=== PATIENT | female | born 1955 | race Caucasian/White ===

== ENCOUNTER 2024-08-23 15:17 | Emergency (ER) | payer OTHER, SELFPAY ==
--- NOTE | 2024-08-23 15:39 | XR_ITS ---
Examination: PA lateral chest 2 views TECHNIQUE: Upright PA lateral chest 2 views Exam date and time: 08/23/2024 1550 hours INDICATIONS: Weakness nausea today. FINDINGS: Atelectasis versus early pneumonia left base Right lung clear Normal heart size IMPRESSION: Atelectasis versus early pneumonia left base clinical correlation advised
--- NOTE | 2024-08-23 15:40 | PD.EDRME ---
Rapid Medical Screening Exam RME Arrival date/time: 08/23/24 15:17 68-year-old female with history of septic shock presents emerged department complaints of feeling similar symptoms patient reports generalized bodyaches and feeling unwell Chief Complaint: Fever
[2024-08-23 16:43] LABS: Lactate (Lactic Acid) 2.1 mMol/L (0.4-2.0)
[2024-08-23 16:43] LABS: Collection Type, Urine Clean Catch
[2024-08-23 16:47] LABS: Basophils % (Auto) 0 % (0-2.5); Eosinophils # (Auto) 0.1 Thou/mm3 (0.0-0.5); Eosinophils % (Auto) 2 % (0-10); Hematocrit 38.4 % (36.0-46.0); Hemoglobin 12.8 g/dL (12.0-16.0); Immature Granulocytes % (Auto) 1 % (0-0); Immature Granulocytes Auto 0.02 Thou/mm3 (0.00-0.00); Lymphocytes # (Auto) 0.2 Thou/mm3 (1.0-4.8); Lymphocytes % (Auto) 4 % (10-50); Mean Corpuscular HGB Conc 33.3 g/dl (31.0-37.0); Mean Corpuscular Hemoglobin 34.4 pg (25.0-35.0); Mean Corpuscular Volume 103 fL (80-100); Monocytes # (Auto) 0.2 Thou/mm3 (0.0-0.8); Monocytes % (Auto) 5 % (0-12); Neutrophils # (Auto) 3.7 Thou/mm3 (1.8-7.7); Neutrophils % (Auto) 89 % (37-80); Nucleated Red Blood Cell % 0 /100 WBC (0); Platelet Count 143 Thou/mm3 (140-440); RDW Standard Deviation 50.5 fL (36.4-46.3); Red Blood Count 3.72 Miln/mm3 (4.00-5.20); White Blood Count 4.2 Thou/mm3 (3.6-11.0)
[2024-08-23 16:49] LABS: Bilirubin,Urine Negative (Negative); Blood,Urine Negative (Negative); Clarity,Urine Clear (Clear/Hazy); Color,Urine Yellow (Lt Yel-Yel); Glucose, Urine Negative (Negative); Ketones,Urine Negative (Negative); Leukocyte Esterase,Urine Negative (Negative); Nitrite,Urine Negative (Negative); Protein,Urine Trace (Neg - Trace); RBC,Urine 5 /hpf (0-3); Specific Gravity,Urine 1.028 (1.001-1.035); Squamous Epithelial Cell,Urine 1 /hpf (0-5); Urobilinogen,Urine Negative mg/dL (0.0-1.0); WBC,Urine 1 /hpf (0-5)
[2024-08-23 17:12] LABS: Alanine Aminotransferase 54 U/L (10-49); Albumin, Serum 4.7 gm/dL (3.4-4.8); Albumin/Globulin Ratio 1.8 (1.2-2.2); Alkaline Phosphatase 132 U/L (46-116); Anion Gap 9 (7-16); Aspartate Amino Transferase 74 U/L (0-34); BUN/Creatinine Ratio 25 Ratio (12-20); Bilirubin,Total 1.2 mg/dL (0.3-1.2); Blood Urea Nitrogen 30 mg/dL (9-23); Calcium 9.4 mg/dL (8.3-10.6); Calcium (Corrected) 9.4 mg/dL (8.5-10.1); Carbon Dioxide 25.5 mMol/L (20.0-31.0); Chloride 102 mMol/L (98-107); Creatinine (Component) 1.2 mg/dL (0.6-1.3); Globulin 2.6 gm/dL (2.3-3.5); Glucose 184 mg/dL (74-106); Osmolality,Calculated 283 (275-295); Potassium 3.9 mMol/L (3.4-5.1); Procalcitonin 0.26 ng/ml (0.0-0.49); Sodium 136 mMol/L (136-145); Total Protein 7.3 gm/dL (5.7-8.2); eGFR 50 See Note
[2024-08-23 18:47] VITALS: BP 136/57; PULSE 75; RESP 18; TEMP 36.8; O2SAT 99; BMI 27.6
[2024-08-23 19:40] LABS: Reflex Lactate? Y
[2024-08-23 19:59] LABS: Lactic Acid, 3 HR 1.9 mMol/L (0.4-2.0)
== END 2024-08-23 21:48 | disposition left against medical advice (07) ==
LOC: SERX 16:05
PROVIDERS: Nurse Practitioner Primary Care; Emergency Provider Emergency Medicine
DX: R50.9 Fever, unspecified (principal); R53.1 Weakness; R11.0 Nausea; Z53.29 Procedure and treatment not carried out because of patient's decision for other reasons
CPT/HCPCS: 36415; 71046; 80053; 81001; 83605; 84145; 85025; 87040; 87086; 99281